=== PATIENT | female | born 1985 | race Two or more races ===

== ENCOUNTER 2023-06-26 10:04 | Day surgery (SDC) | payer OTHER | END 2023-06-26 16:45 | disposition home or self-care (01) | LOC: AMB-ENDOS 10:04 → CIR.AMB 15:15 → AMB-ENDOS 16:45 | PROVIDERS: ATTEND Colon & Rectal Surgery | DX: K63.5 Polyp of colon (principal); K62.5 Hemorrhage of anus and rectum; R19.4 Change in bowel habit; Z20.822 Contact with and (suspected) exposure to COVID-19; Z12.11 Encounter for screening for malignant neoplasm of colon ==